=== PATIENT | female | born 1990 | race Caucasian/White ===

== ENCOUNTER → 2017-03-22 | Emergency (ER) | payer BC ==
[~2017-03-22] VITALS: Ht 165.1 cm; Wt 99.8 kg
[~2017-03-22] MED LIST: ALAVERT10 MG PO; AMOXICILLIN 50500 MG PO; ANTIVERT GENERI25 MG PO; BUSPIRONE 5MG TA5 MG PO; FLEXERIL10 MG PO; FLONASE 50 MCG16 GM; HYDROXYZINE 25M25 MG PO; HYDROXYZINE HCL25 M1 PO; HYDROXYZINE PAM25 MG PO; KEFLEX500 M1 PO; LORATADINE 10MG10 M1 PO; MONTELUKAST SOD10 MG PO; MULTI-VITAMIN1 EACH PO; NAPROSYN 500MG500 MG PO; NOMEDS; PRENATAL PLUS1 TA1 PO; TRIAMCINOL30 GM/TUBE TP
--- OUTSIDE RECORDS SUMMARY | 2017-03-22 09:20 | External Medical Summary Rpt | CCD ---
Author Author DANDY Address Unknown Phone [email or web address] Purpose Continuity of Care Document - through 2016
--- OUTSIDE RECORDS SUMMARY | 2017-03-22 09:20 | External Medical Summary Rpt | CCD ---
Demographics Preferred Language Yi Marital Status Unknown Amish Affiliation Unknown Race Unknown Ethnic Group Unknown Author Author , DANDY DORMAN Address Unknown Phone Immunization No patient found.
--- OUTSIDE RECORDS SUMMARY | 2017-03-22 09:20 | External Medical Summary Rpt ---
Author Author DANDY Fontenot, DANDY Fontenot Organization [employer] Address Unknown Phone Unavailable
--- OUTSIDE RECORDS SUMMARY | 2017-03-22 09:20 | External Medical Summary Rpt | CCD ---
Author Author DANDY Address Unknown Phone [email or web address] Purpose Continuity of Care Document - through 2016
--- OUTSIDE RECORDS SUMMARY | 2017-03-22 09:20 | External Medical Summary Rpt | CCD ---
Author Author , DANDY Organization [employer] Address Unknown Phone [email or web address] Team Providers Care Medical Accounts Receivable Specialist Name Role Phone Christian Wells MD, Unavailable Unavailable Christian Wells MD Purpose Continuity of Care Document - 11-07-2012 through 2016 Problems Code Diagnosis DOS Provider Status 493.90 493.90 11-07-2012 Taran ASTHMA, [facility] 847.0 847.0 11-07-2012 Taran SPRAIN OF [facility] 847.2 847.2 11-07-2012 [facility] E849.0 E849.0 11-07-2012 Taran ACCIDENT IN [facility] E885.9 E885.9 FALL 11-07-2012 Taran FROM [facility] SLIPPING, Hospital TRIPPING, OR STUMBLING NEC L05.91 PILONIDAL CYST WITHOUT ABSCESS M79.671 PAIN IN RIGHT FOOT Allergies, Adverse Reactions, Alerts Type Drug Allergy Adverse Reaction to Substance Substance Reaction Severity No Known Allergies - Unknown Unknown Nka Medications Na ND Rx Da Fi Fi Am Da Di Ph RX Ph St me C No te ll ll ou ys ag ar # ys at rm s nt no ma ic us Or Da si cy ia de te s n re d Ib 62 07 0 No up 58 -2 ro 40 8- Lo fe 74 20 ng n 60 13 er 40 1 0M Ac G ti Ta ve bl et CY 51 07 0 No CL 07 -2 OB 90 8- Lo EN 64 20 ng ZA 42 13 er CA 0 IN Ac E ti 10 ve MG TA BL ET Vital Signs 11-07-2012 23:15 Name Value Interpretat Reference Comment ion Range BP 84 mm[Hg] Diastolic BP Systolic 114 mm[Hg] Heart 90 /min Rate/Pulse O2% 100 % Respiratory 20 /min Rate 11-07-2012 22:34 Name Value Interpretat Reference Comment ion Range Heart 100 /min Rate/Pulse O2% 100 % Respiratory 20 /min Rate Results Labs Lab Lab Date Result Refere Interp Status Commen Order Detail nces retati t Range on B-HCG Ur Ql (11-07-2012 22:00) B-HCG NEGATIV NEG complet Ur Ql 013 E ed 22:00 Encounters Encounter Start End Date Code Location Performer Type Date Emergency AARON Wells MD (ER) 3 21:36 3 23:16 [facility]
--- OUTSIDE RECORDS SUMMARY | 2017-03-22 09:20 | External Medical Summary Rpt | CCD ---
Author Author , DANDY Organization DANDY Address Unknown Phone [email or web address] Care Team Providers Care Wood Chopper Name Role Phone Christian Wells MD, Unavailable Unavailable Christian Wells MD Purpose Continuity of Care Document - 11-07-2012 through 2016 Problems Code Diagnosis DOS Provider Status 493.90 493.90 11-07-2012 Taran ASTHMA, [facility] 847.0 847.0 11-07-2012 Taran SPRAIN OF [facility] 847.2 847.2 11-07-[address] [facility] E849.0 E849.0 11-07-2012 Taran ACCIDENT IN [facility] E885.9 E885.9 FALL 11-07-2012 Taran FROM [facility] SLIPPING, Hospital TRIPPING, OR STUMBLING NEC L05.91 [...] 64 20 ng ZA 42 13 er [place] 0 IN Ac E ti 10 ve [...] Wells MD (ER) 3 21:36 3 23:16 [facility]
--- OUTSIDE RECORDS SUMMARY | 2017-03-22 09:20 | External Medical Summary Rpt | CCD ---
Demographics Preferred Language Danish Marital Status Unknown Protestant Affiliation Unknown Race Unknown Ethnic Group Unknown Author Author , DANDY DORMAN Address Unknown Phone Immunization No patient found.
[2017-03-22 09:40] LABS: UTC STREP SCREEN NOT DETECTED (NOTDETECTED)
[2017-03-22 09:46] VITALS: BP 107/81
--- NOTE | 2017-03-22 09:46 | Urgent Treatment Center Report ---
History of Present Issue Date/Time Seen by Provider 03/22/17 0941 Visit Reason Pt arrived:Walked Presenting Problem:PT C/O SORE THROAT SINCE YESTERDAY. Location if Accident: Onset of symptoms date/time:/ or onset unknown for:MEDICAL HX UNKNOWN Have you (or family members/close friends) recently traveled outside the [place]? N If Yes, where/when: Have you had exposure to infectious disease within the past month? TB? Other? Specify: Patient state that she has been haivng sore throat since yesterday States that she has continued to get worse. State that she was unable to sleep last night because of throat pain and drainage States that today her throat is even more raw and irritated so she came in to get checked out ALLERGIES Coded Allergies: No Known Allergies (04/01/16) Home Medications Reported Medications Buspirone Hcl (Buspirone 5MG) 5 MG PO TID #90 30 Days Fluticasone Propionate (Flonase 50 Mcg Nasal [place]) 1 SPRAY NA DAILY #48 Hydroxyzine Pamoate (Hydroxyzine) 25 MG PO BID History Medical History General CAD? No Angina: No MT: No Hypertension? No Hyperlipidemia? No CHF? No DVT? No PE? No COPD? No Asthma? Yes Anemia? No GERD? No Gastric ulcers? No GI Bleed? No Hernia? No Thyroid Problems? No Hypothyroidism? No CVA? No Seizures? No Diabetes? No Renal Insuffiency? No UTI? No Stones? No BPH? No GB Disease: No Nephritic Syndrome? No Asplenia? No Hepatitis? No Sickle Cell Disease? No Arthritis? No Migraines? No Cataracts? No Glaucoma? No MRSA? No HIV? No TB? No Anxiety? Yes Depression? No Cancer? No More? 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 Physical Exam Vital Signs Vital Signs Date Time Temp Pulse Resp B/P Pulse O2 O2 Flow FiO2 Ox Delivery Rate 03/22 0946 98.2 84 18 107/81 99 03/22 09 98.2 84 18 107/81 99 General Appearance normal appearance, WD/WN, no apparent distress Ear, Nose, Throat Throat red, irritated, drainage noted, no exudate Respiratory Status Yes: trachea midline, chest symmetrical, non tender chest. No: respiratory distress. Lung Sounds bilateral: normal breath sounds, lungs clear. Cardiovascular normal exam, regular rate/rhythm Neurologic alert, normal exam, oriented x 3 Medical Decision Making LABS/Meds/Orders Pt receiving controlled substance in ED? No Results/Orders Laboratory Tests 03/22/1739: Influenza Type A Ag NOT DETECTED, Influenza Type B Ag NOT DETECTED, Group A Strep Screen NOT DETECTED Current Medication Orders Sig/Reese Start time Last Medication Dose Route Stop Time Status Admin Ceftriaxone Sodium 1 GM ONCE ONE 03/22 945 CAN IM 03/22 946 Ceftriaxone Sodium 0 .STK-MED ONE 03/22 945 DC .ROUTE Lidocaine HCl 0 ONCE ONE 03/22 945 CAN IM 03/22 946 Lidocaine HCl 0 .STK-MED ONE 03/22 945 DC .ROUTE Methylprednisolone 125 MG ONCE ONE 03/22 945 CAN Sodium Succinate IM 03/22 946 Methylprednisolone 0 .STK-MED ONE 03/22 945 DC Sodium Succinate .ROUTE Orders Procedure Date/time Status UTC STREP SCREEN 03/22 939 Complete UTC FLU A,B 03/22 939 Complete Departure Departure Time of Disposition 943 Disposition DC Home or Self Care(routine) Clinical Impression Primary Impression: Upper respiratory infection Qualifiers: URI type: unspecified URI Qualified Code: J06.9 - Acute upper respiratory infection, unspecified Condition STABLE Referrals Kelsy Hong APRN (Family): 3 Days-Call Office Patient Instructions Sore Throat Additional Instructions * Monitor Temp. Tylenol and/or Ibuprofen as needed. ER if fever is no less than 101 despite alternating Tylenol and Ibuprofen * Encourage fluids, water, Gatorade, powerade, pedialyte if infant/toddler/or child * Warm salt water gargles for throat irritation *Warm fluids *Sore throat lozenges *Sleep elevated *humidifier or vaporizer Lots of rest Increase fluids, water, Gatorade, powerade Discharge Counseling Counseled pt/family regarding diagnosis, test results, medications/RX, home care, follow up needs Prescriptions Current Visit Scripts Amoxicillin Trihydrate (Amoxicillin 500MG) 500 MG PO BID #20 CAP at 0953
== END ==
LOC: UTC 09:14
PROVIDERS: Nurse Practitioner
DX: J06.9 Acute upper respiratory infection, unspecified (principal); J45.909 Unspecified asthma, uncomplicated; Z79.51 Long term (current) use of inhaled steroids; Z79.899 Other long term (current) drug therapy; F41.9 Anxiety disorder, unspecified